=== PATIENT | male | born 1945 | race Caucasian/White ===

== ENCOUNTER 2018-02-15 13:32 | Emergency (ER) | payer MEDICARE, BC ==
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
[2018-02-15] MEDS ORDERED: Lactated Ringers 1,000 ML IV SCH (14:15)
--- NOTE | 2018-02-15 14:32 | PCM.PREANE ---
Preanesthetic Assessment - Anesthesia/Transfusion/Family Hx Anesthesia History: Prior Anesthesia Without Reaction Family History of Anesthesia Reaction: No Transfusion History: No Prior Transfusion(s) - Review of Systems General: No Symptoms Pulmonary: No Symptoms Cardiovascular: No Symptoms Gastrointestinal: No Symptoms Neurological: No Symptoms Other: Reports: Easy Bleeding, Easy Bruising - Physical Assessment NPO Status Date: 02/15/18 NPO Status Time: 08:30 Pulse: 84 O2 Sat by Pulse Oximetry: 97 Respiratory Rate: 20 Blood Pressure: 157/83 Temperature: 36.9 C Vital Signs: Last Vital Signs Temp 36.9 C 02/15/18 13:38 Pulse 84 02/15/18 13:38 Resp 20 02/15/18 13:38 BP 157/83 H 02/15/18 13:38 Pulse Ox 97 02/15/18 13:38 Height: 1.75 m Weight: 90.718 kg ASA Class: 2 Mental Status: Alert & Oriented x3 Airway Class: Mallampati = 1 Dentition: Reports: Normal Dentition, Caries Thyro-Mental Finger Breadths: 3 Mouth Opening Finger Breadths: 3 ROM/Head Extension: Full Lungs: Clear to Auscultation, Normal Respiratory Effort Cardiovascular: Regular Rate, Regular Rhythm - Lab Values: Laboratory Last Values WBC 6.42 K/mm3 (4.23-9.07) 02/15/18 14:00 RBC 5.20 M/mm3 (4.63-6.08) 02/15/18 14:00 Hgb 14.3 gm/L (13.7-17.5) 02/15/18 14:00 Hct 42.6 % (40.1-51.0) 02/15/18 14:00 MCV 81.9 fl (79.0-92.2) 02/15/18 14:00 MCH 27.5 pg (25.7-32.2) 02/15/18 14:00 MCHC 33.6 g/dl (32.2-35.5) 02/15/18 14:00 RDW Std Deviation 41.5 fL (35.1-43.9) 02/15/18 14:00 Plt Count 171 K/mm3 (163-337) 02/15/18 14:00 MPV 10.9 fl (9.4-12.3) 02/15/18 14:00 - Allergies Allergies/Adverse Reactions: Allergies Allergy/AdvReac Type Severity Reaction Status Date / Time No Known Allergies Allergy Verified 10/10/14 10:50 - Anesthesia Plan Pre-Op Medication Ordered: None - Acknowledgements Anesthesia Type Planned: MAC Pt an Appropriate Candidate for the Planned Anesthesia: Yes Alternatives and Risks of Anesthesia Discussed w Pt/Guardian: Yes Pt/Guardian Understands and Agrees with Anesthesia Plan: Yes PreAnesthesia Questionnaire HEENT History: Reports: Glaucoma Cardiovascular History: Reports: High Cholesterol, Hypertension Respiratory History: Reports: Asthma, COPD Musculoskeletal History: Reports: Gout, Osteoarthritis Hematologic History: Reports: Other (See Below) Other Hematologic History: Liden 5 factor - SUBSTANCE USE Smoking Status *Q: Former Smoker Tobacco Use Within Last Twelve Months: No Second Hand Smoke Exposure: No Days Per Week of Alcohol Use: 0 Number of Drinks Per Day: 0 Total Drinks Per Week: 0 Recreational Drug Use History: No - HOME MEDS Home Medications: Home Meds Allopurinol [Zyloprim] 150 mg PO DAILY 10/10/14 [History] Hydrochlorothiazide 12.5 mg PO DAILY 10/10/14 [History] Latanoprost [Xalatan] 1 drop EYEBOTH BEDTIME 10/10/14 [History] Losartan [Cozaar] 50 mg PO DAILY 10/10/14 [History] Simvastatin [Zocor] 40 mg PO BEDTIME 10/10/14 [History] Timolol Maleate [Timoptic 0.5% Opth Soln] 1 drop EYEBOTH BID 10/10/14 [History] Warfarin [Coumadin] 2.5 mg PO SUTUWETHSA 10/10/14 [History] Warfarin [Coumadin] 5 mg PO MOFR 10/10/14 [History] Fluticasone/Vilanterol [Breo Ellipta 100-25 MCG Inhalation Kit] 1 puff INH DAILY 02/15/18 [History] Levothyroxine [Synthroid] 50 mcg PO DAILY 02/15/18 [History] - CURRENT (IN HOUSE) MEDS Current Meds: Current Medications Lactated Ringer's (Ringers, Lactated) 1,000 mls @ 100 mls/hr IV ASDIRECTED FRANCISCA Last Admin: 02/15/18 14:18 Dose: 100 mls/hr
[2018-02-15] MEDS ORDERED: Bupivacaine 0.5% 10 ML SDV INJECT STA (14:36)
[2018-02-15] MEDS ORDERED: Midazolam 1 MG/ML 2 ML SDV ONE (14:42)
[2018-02-15] MEDS ORDERED: Propofol 200 MG/20 ML SDV ONE (14:42)
[2018-02-15] MEDS ORDERED: Ketamine 500 mg/10 ML MDV ONE (14:43)
--- NOTE | 2018-02-15 14:56 | CR ---
Nasal bone: Three views of the nasal bone were obtained. Visualized sinuses are clear. No nasal bone fracture is identified. Impression: 1. No abnormality is identified on nasal bone exam. Diagnostic code #1
[2018-02-15] MEDS ORDERED: ceFAZolin 1 GM in Premix Bag 1 BAG IV ONE (15:10)
[2018-02-15 15:26] VITALS: BP 105/68
== END 2018-02-15 16:27 | disposition home or self-care (01) ==
LOC: JD.ED 13:32
DX: S01.21XA Laceration without foreign body of nose, initial encounter (principal); R79.1 Abnormal coagulation profile; I10 Essential (primary) hypertension; E78.00 Pure hypercholesterolemia, unspecified; J44.9 Chronic obstructive pulmonary disease, unspecified; Z79.899 Other long term (current) drug therapy; Z87.891 Personal history of nicotine dependence; Z79.01 Long term (current) use of anticoagulants; W22.8XXA Striking against or struck by other objects, initial encounter
CPT/HCPCS: 12013; 36415; 70160; 80053; 85007; 85027; 85610; 96361; 96365; 99284; J0690; J2250; J7120; 00300; 13132; 13152; 99283-25; J2704

== ENCOUNTER 2021-08-20 01:48 | Emergency (ER) | payer MEDICARE, OTHER ==
[2021-08-20 02:02] VITALS: BP 174/88; PULSE 76
--- NOTE | 2021-08-20 02:53 | EDM.PDOC ---
ED HPI GENERAL MEDICAL PROBLEM - General Chief Complaint: ENT Problem Stated Complaint: JAW PAIN Time Seen by Provider: 08/20/21 02:44 - History of Present Illness INITIAL COMMENTS - FREE TEXT/NARRATIVE: 75-year-old male presents the emergency room with dental and jaw pain. This started a couple of days ago left jaw underneath his third tooth from the back. Patient recently had some dental work done on this side but he cannot recall which tooth it was. He has not had any fevers or chills with this he has not noticed any significant facial swelling every once in a while he can reach up there and feel a painful bump adjacent to the tooth. Patient denies any breathing difficulties shortness of breath or chest pain. He denies any other complaints at this time. Patient is on a blood pressure medication and cholesterol medication and his Coumadin at this point denies any other medication. His medication list is incomplete for this visit. Left Lower Jaw Pain Score (Numeric/FACES): 4 - Related Data Allergies Allergy/AdvReac Type Severity Reaction Status Date / Time No Known Allergies Allergy Verified 10/10/14 10:50 Home Meds: Home Meds Latanoprost [Xalatan] 1 drop EYEBOTH BEDTIME 10/10/14 [History] Losartan [Cozaar] 50 mg PO DAILY 10/10/14 [History] Simvastatin [Zocor] 40 mg PO BEDTIME 10/10/14 [History] Warfarin [Coumadin] 2.5 mg PO SUTUWETHSA 10/10/14 [History] Warfarin [Coumadin] 5 mg PO MOFR 10/10/14 [History] allopurinoL [Zyloprim] 150 mg PO DAILY 10/10/14 [History] hydroCHLOROthiazide [Hydrochlorothiazide] 12.5 mg PO DAILY 10/10/14 [History] timoloL maleate [Timoptic 0.5% Opth Soln] 1 drop EYEBOTH BID 10/10/14 [History] Doxycycline [Vibramycin] 100 mg PO BID #20 cap 02/15/18 [Rx] Fluticasone/Vilanterol [Breo Ellipta 100-25 MCG Inhalation Kit] 1 puff INH DAILY 02/15/18 [History] Levothyroxine [Synthroid] 50 mcg PO DAILY 02/15/18 [History] oxyCODONE HCl/Acetaminophen [Percocet 5-325 mg Tablet] 1 - 2 each PO Q4H PRN #16 tablet 02/15/18 [Rx] Amoxicillin 500 mg PO TID #30 tab 08/20/21 [Rx] Past Medical History HEENT History: Reports: Glaucoma, Impaired Vision Cardiovascular History: Reports: Blood Clots/VTE/DVT, High Cholesterol, Hypertension Respiratory History: Reports: Asthma, COPD, PE Musculoskeletal History: Reports: Gout, Osteoarthritis Endocrine/Metabolic History: Reports: Hypothyroidism Hematologic History: Reports: Other (See Below) Other Hematologic History: Liden 5 factor Social & Family History - Tobacco Use Tobacco Use Status *Q: Unknown Ever Used Tobacco - Caffeine Use Caffeine Use: Reports: Coffee - Living Situation & Occupation Occupation: Employed ED ROS GENERAL - Review of Systems Review Of Systems: See Below Constitutional: Reports: No Symptoms HEENT: Reports: Dental Pain Respiratory: Reports: No Symptoms Cardiovascular: Reports: No Symptoms GI/Abdominal: Reports: No Symptoms : Reports: No Symptoms Musculoskeletal: Reports: No Symptoms Skin: Reports: No Symptoms Neurological: Reports: No Symptoms ED EXAM, GENERAL - Physical Exam Exam: See Below Exam Limited By: No Limitations General Appearance: Alert, No Apparent Distress Eye Exam: Bilateral Eye: Normal Inspection Ears: Normal External Exam, Normal Canal, Hearing Grossly Normal, Normal TMs Nose: Normal Inspection, Normal Mucosa, No Blood Throat/Mouth: Normal Inspection, Normal Lips, Normal Gums, Normal Oropharynx, Normal Voice, No Airway Compromise, Other (Lower two thirds from the back has a filling on it I am unsure if this is a temporary. But this tooth is tender with palpation and is directly up from the palpable bump on his lateral jaw. There is is minimal erythema and no drainage noted.). No: Normal Teeth Head: Atraumatic, Normocephalic Neck: Normal Inspection, Supple, Non-Tender, Full Range of Motion. No: Lymphadenopathy (L), Lymphadenopathy (R) Respiratory/Chest: No Respiratory Distress, Lungs Clear, Normal Breath Sounds Cardiovascular: Regular Rate, Rhythm, No Edema, No Murmur Course - Vital Signs Last Recorded V/S: Last Vital Signs Temp 35.8 C L 08/20/21 02:00 Pulse 76 08/20/21 02:00 Resp 14 08/20/21 02:00 BP 174/88 H 08/20/21 02:00 Pulse Ox 95 08/20/21 02:00 - Orders/Labs/Meds Meds: Medications Discontinued Medications Generic Name Dose Route Start Last Admin Trade Name Neo PRN Reason Stop Dose Admin Amoxicillin 500 mg 08/20/21 02:58 Amoxicillin 500 Mg Cap PO 08/20/21 02:59 ONETIME ONE - Radiology Interpretation Free Text/Narrative:: The patient probably has a developing dental infection under 1 of these teeth. We will start him on amoxicillin. Will recommend he follow-up this next week to have his INR checked. Departure - Departure Time of Disposition: 02:58 Disposition: Home, Self-Care 01 Clinical Impression: Pain, dental - Discharge Information Referrals: Dayton Sheehan MD [Primary Care Provider] - Forms: ED Department Discharge Additional Instructions: Return to the emergency room with any questions problems or worsening symptoms. I sent a prescription to the clinic pharmacy electronically for amoxicillin, this is an antibiotic. Take 1 3 times daily until all gone. Call your dentist's office as soon as they are open to get into be seen early this next week if possible. Sepsis Event Note (ED) - Evaluation Sepsis Screening Result: No Definite Risk - Focused Exam Vital Signs: Vital Signs Temp Pulse Resp BP Pulse Ox 08/20/21 02:00 35.8 C L 76 14 174/88 H 95
[2021-08-20] MEDS ORDERED: Amoxicillin 500 MG Cap PO ONE (02:58)
== END 2021-08-20 03:13 | disposition home or self-care (01) ==
LOC: JD.ED 01:48
DX: K08.89 Other specified disorders of teeth and supporting structures (principal); E78.00 Pure hypercholesterolemia, unspecified; I10 Essential (primary) hypertension; J44.9 Chronic obstructive pulmonary disease, unspecified; M10.9 Gout, unspecified; E03.9 Hypothyroidism, unspecified; Z86.711 Personal history of pulmonary embolism; Z79.899 Other long term (current) drug therapy
CPT/HCPCS: 99283